=== PATIENT | female | born 1985 | race American Indian/Alaskan Native ===

== ENCOUNTER 2021-01-14 12:49 | Observation (INO) | payer OTHER ==
--- NOTE | 2021-01-14 13:19 | Event Note ---
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 Patient states that she has been suffering from abdominal pain x2 years. Patient reports she was recently diagnosed with Crohn's disease as well as fibroids. Patient admits to heavy menstrual cycle. She states that she is followed by [facility] and was is scheduled for Tuesday to have fibroids repaired. She has a medical art therapist Dr.Jalil Torres [phone]. Patient admits that she suffers from being tired all the time.. She is 4 para 4. Last menstrual period was 01/13/2021. This initial assessment/diagnostic orders/clinical plan/treatment(s) is/are subject to change based on patients health status, clinical progression and re- assessment by fellow clinical providers in the ED. Further treatment and workup at subsequent clinical providers discretion. Patient/guardian urged not to elope from the ED as their condition may be serious if not clinically assessed and managed. Initial orders include: CBC CMP PT PTT type and screen.
[2021-01-14 13:36] LABS: Mean Corpuscular HGB Conc 28 % (30-34); Platelet Count 299 K/mm3 (140-440); Red Blood Count 3.61 M/mm3 (3.65-5.03)
[2021-01-14 13:38] LABS: Hematocrit 21.5 % (30.3-42.9); Hemoglobin 5.9 gm/dl (10.1-14.3); Mean Corpuscular Volume 60 fl (79-97)
[2021-01-14 13:40] LABS: INR 0.98 (0.87-1.13); Partial Thromboplastin Time 29.2 Sec. (24.2-36.6)
[2021-01-14] MEDS ORDERED: fentaNYL 100 MCG/2 ML INJ IV ONE (13:46)
[2021-01-14] MEDS ORDERED: ONDANSETRON 4 MG/2 ML INJ IV ONE (13:46)
[2021-01-14] MEDS ORDERED: SODIUM CHLORIDE 0.9% 500 ML 500 ML IV ONE (13:46)
--- NOTE | 2021-01-14 13:54 | Emergency Department Report ---
HPI - HPI HPI: Spoke to Dr. Mason at approximately 5:05 PM pelvic exam discussed that was done previously by Dr. Flor. Patient will be admitted to [facility] and will receive transfusion of packed RBCs. <PEPE BAE - Last Filed: 01/14/21 17:08> - HPI HPI: Reassessment 1 The patient is a 35-year-old female present with chief complaint of symptomatic anemia. The patient has a history of menorrhagia and uterine fibroids and had blood drawn 01/12/2021 in preparation for fibroid surgery this week. Patient was called and told her hemoglobin was low at 5.4 and that she needs to come to the hospital for blood transfusion. Patient states she feels weak and she complains of pain in her lower abdomen consistent with her fibroid pain. The patient states her cycle started yesterday and she has gone through approximately 48 pads in 1 day <IMANI DIAS - Last Filed: 01/16/21 01:47> - General Chief Complaint: Recheck/Abnormal Lab/Rx Time Seen by Provider: 01/14/21 13:20 ED Past Medical Hx <PEPE BAE - Last Filed: 01/14/21 17:08> - Past Medical History Hx Hypertension: Yes - Surgical History Past Surgical History?: No - Family History Family history: no significant - Social History Smoking Status: Former Smoker (None x3 years) Substance Use Type: None (Denies illicit drug use) <IMANI DIAS - Last Filed: 01/16/21 01:47> - Medications Home Medications: Home Medications Medication Instructions Recorded Confirmed Last Taken Type No Known Home Medications [No 01/14/21 01/14/21 Unknown History Reported Home Medications] ED Review of Systems ROS: Stated complaint: ABNORMAL LABS Other details as noted in HPI <PEPE BAE - Last Filed: 01/14/21 17:08> ROS: Stated complaint: ABNORMAL LABS Other details as noted in HPI Constitutional: malaise Eyes: denies: eye pain ENT: denies: throat pain Respiratory: no symptoms reported Cardiovascular: denies: chest pain Endocrine: no symptoms reported Gastrointestinal: abdominal pain Genitourinary: abnormal menses Musculoskeletal: denies: back pain Neurological: denies: headache <IMANI DIAS - Last Filed: 01/16/21 01:47> Physical Exam - Physical Exam Vital Signs: Vital Signs 01/14/21 01/14/21 01/14/21 12:54 14:20 14:31 Temperature 98.7 F Pulse Rate 92 H 91 H Respiratory 18 14 9 L Rate Blood Pressure 175/116 166/106 Blood Pressure [Right] O2 Sat by Pulse 100 100 100 Oximetry 01/14/21 01/14/21 01/14/21 14:45 14:57 15:00 Temperature Pulse Rate 83 Respiratory 18 18 Rate Blood Pressure 166/106 Blood Pressure [Right] O2 Sat by Pulse 100 98 Oximetry 01/14/21 01/14/21 01/14/21 15:01 15:15 15:22 Temperature Pulse Rate 88 72 78 Respiratory 13 16 18 Rate Blood Pressure 156/101 156/101 Blood Pressure 168/99 [Right] O2 Sat by Pulse 100 100 98 Oximetry 01/14/21 01/14/21 01/14/21 15:31 15:45 16:01 Temperature Pulse Rate 83 69 74 Respiratory 16 12 12 Rate Blood Pressure 168/99 168/99 160/107 Blood Pressure [Right] O2 Sat by Pulse 100 100 100 Oximetry 01/14/21 01/14/21 01/14/21 16:15 16:31 16:45 Temperature Pulse Rate 77 75 82 Respiratory 14 11 L 12 Rate Blood Pressure 160/107 160/107 160/107 Blood Pressure [Right] O2 Sat by Pulse 100 100 100 Oximetry 01/14/21 17:01 Temperature Pulse Rate Respiratory Rate Blood Pressure 164/110 Blood Pressure [Right] O2 Sat by Pulse 100 Oximetry <PEPE BAE - Last Filed: 01/14/21 17:08> - Physical Exam Vital Signs: Vital Signs 01/14/21 12:54 Temperature 98.7 F Pulse Rate 92 H Respiratory 18 Rate Blood Pressure 175/116 O2 Sat by Pulse 100 Oximetry Physical Exam: GENERAL: The patient is well-developed well-nourished female lying on stretcher not appearing to be in acute distress. [] HEENT: Normocephalic. Atraumatic. Extraocular motions are intact. Patient has moist mucous membranes. NECK: Supple. Trachea midline CHEST/LUNGS: Clear to auscultation. There is no respiratory distress noted. HEART/CARDIOVASCULAR: Regular. There is no tachycardia. There is no gallop rub or murmur. ABDOMEN: Abdomen is soft, with tenderness to palpation in the right lower quadrant, suprapubic and left lower quadrant. Patient has normal bowel sounds. There is no abdominal distention. SKIN: There is no rash. There is no edema. There is no diaphoresis. NEURO: The patient is awake, alert, and oriented. The patient is cooperative. The patient has no focal neurologic deficits. The patient has normal speech and gait. GCS 15 MUSCULOSKELETAL: There is no evidence of acute injury. PELVIC: Unknown amount of dark red blood pouring from introitus Pelvic exam. During exam I estimate approximately 50 mls of dark red blood still remaining in the vault and this was soaked up and cleared by using approximately 12-15 oversized swabs. The bleeding did not refill briskly but there was a slow ooze. <IMANI DIAS K - Last Filed: 01/16/21 01:47> ED Course Vital Signs 01/14/21 01/14/21 01/14/21 12:54 14:20 14:31 Temperature 98.7 F Pulse Rate 92 H 91 H Respiratory 18 14 9 L Rate Blood Pressure 175/116 166/106 Blood Pressure [Right] O2 Sat by Pulse 100 100 100 Oximetry 01/14/21 01/14/21 01/14/21 14:45 14:57 15:00 Temperature Pulse Rate 83 Respiratory 18 18 Rate Blood Pressure 166/106 Blood Pressure [Right] O2 Sat by Pulse 100 98 Oximetry 01/14/21 01/14/21 01/14/21 15:01 15:15 15:22 Temperature Pulse Rate 88 72 78 Respiratory 13 16 18 Rate Blood Pressure 156/101 156/101 Blood Pressure 168/99 [Right] O2 Sat by Pulse 100 100 98 Oximetry 01/14/21 01/14/21 01/14/21 15:31 15:45 16:01 Temperature Pulse Rate 83 69 74 Respiratory 16 12 12 Rate Blood Pressure 168/99 168/99 160/107 Blood Pressure [Right] O2 Sat by Pulse 100 100 100 Oximetry 01/14/21 01/14/21 01/14/21 16:15 16:31 16:45 Temperature Pulse Rate 77 75 82 Respiratory 14 11 L 12 Rate Blood Pressure 160/107 160/107 160/107 Blood Pressure [Right] O2 Sat by Pulse 100 100 100 Oximetry 01/14/21 17:01 Temperature Pulse Rate Respiratory Rate Blood Pressure 164/110 Blood Pressure [Right] O2 Sat by Pulse 100 Oximetry <PEPE BAE - Last Filed: 01/14/21 17:08> Vital Signs 01/14/21 12:54 Temperature 98.7 F Pulse Rate 92 H Respiratory 18 Rate Blood Pressure 175/116 O2 Sat by Pulse 100 Oximetry - Consultations Consultation #1: 01/14/21 15:13 [facility] paged-Case discussed with Dr. Mason. May be transfused 1 unit PRBCs in ED and discharge depending on how heavily she is currently bleeding. W ill decide after pelvic exam. 01/14/21 16:02 Dr. Mason paged <IMANI DIAS - Last Filed: 01/16/21 01:47> ED Medical Decision Making - Lab Data Result diagrams: 01/14/21 13:13 01/14/21 13:13 <PEPE BAE - Last Filed: 01/14/21 17:08> - Lab Data Result diagrams: 01/15/21 15:15 01/14/21 13:13 Laboratory Tests 01/14/21 01/14/21 01/14/21 13:13 13:13 13:13 WBC 5.7 RBC 3.61 L Hgb 5.9 L* Hct 21.5 L MCV 60 L MCH 16 L MCHC 28 L RDW 22.0 H Plt Count 299 Add Manual Diff Complete Total Counted 100 Seg Neuts % (Manual) 76.0 H Lymphocytes % (Manual) 18.0 Monocytes % (Manual) 3.0 Eosinophils % (Manual) 2.0 Basophils % (Manual) 1.0 Nucleated RBC % Not Reportable Seg Neutrophils # Man 4.3 Band Neutrophils # 0.0 Lymphocytes # (Manual) 1.0 L Abs React Lymphs (Man) 0.0 Monocytes # (Manual) 0.2 Eosinophils # (Manual) 0.1 Basophils # (Manual) 0.1 Metamyelocytes # 0.0 Myelocytes # 0.0 Promyelocytes # 0.0 Blast Cells # 0.0 WBC Morphology Not Reportable Hypersegmented Neuts Not Reportable Hyposegmented Neuts Not Reportable Hypogranular Neuts Not Reportable Smudge Cells Not Reportable Toxic Granulation Not Reportable Toxic Vacuolation Not Reportable Dohle Bodies Not Reportable Pelger-Huet Anomaly Not Reportable Oliverio Rods Not Reportable Platelet Estimate Consistent w auto Clumped Platelets Not Reportable Plt Clumps, EDTA Not Reportable Large Platelets Not Reportable Giant Platelets Not Reportable Platelet Satelliting Not Reportable Plt Morphology Comment Not Reportable RBC Morphology Not Reportable Dimorphic RBCs Not Reportable Polychromasia Not Reportable Hypochromasia 3+ Poikilocytosis Not Reportable Anisocytosis 2+ Microcytosis 2+ Macrocytosis Not Reportable Spherocytes Not Reportable Pappenheimer Bodies Not Reportable Sickle Cells Not Reportable Target Cells Not Reportable Tear Drop Cells Not Reportable Ovalocytes Not Reportable Helmet Cells Not Reportable [place] Bodies Not Reportable [place] Rings Not Reportable [place] Cells Not Reportable Bite Cells Not Reportable Crenated Cell Not Reportable Elliptocytes Not Reportable Acanthocytes (Spur) Not Reportable Rouleaux Not Reportable Hemoglobin C Crystals Not Reportable Schistocytes Not Reportable Malaria parasites Not Reportable Amish Bodies Not Reportable Hem Pathologist Commnt No PT 14.1 INR 0.98 APTT 29.2 Sodium 137 Potassium 4.1 Chloride 102.9 Carbon Dioxide 20 L Anion Gap 18 BUN 9 Creatinine 0.6 Estimated GFR > 60 BUN/Creatinine Ratio 15 Glucose 86 Calcium 9.1 Total Bilirubin 0.20 AST 12 ALT 6 L Alkaline Phosphatase 46 Total Protein 7.4 Albumin 4.2 Albumin/Globulin Ratio 1.3 HCG, Qual Blood Type Antibody Screen 01/14/21 01/14/21 13:13 14:01 WBC RBC Hgb Hct MCV MCH MCHC RDW Plt Count Add Manual Diff Total Counted Seg Neuts % (Manual) Lymphocytes % (Manual) Monocytes % (Manual) Eosinophils % (Manual) Basophils % (Manual) Nucleated RBC % Seg Neutrophils # Man Band Neutrophils # Lymphocytes # (Manual) Abs React Lymphs (Man) Monocytes # (Manual) Eosinophils # (Manual) Basophils # (Manual) Metamyelocytes # Myelocytes # Promyelocytes # Blast Cells # WBC Morphology Hypersegmented Neuts Hyposegmented Neuts Hypogranular Neuts Smudge Cells Toxic Granulation Toxic Vacuolation Dohle Bodies Pelger-Huet Anomaly Oliverio Rods Platelet Estimate Clumped Platelets Plt Clumps, EDTA Large Platelets Giant Platelets Platelet Satelliting Plt Morphology Comment RBC Morphology Dimorphic RBCs Polychromasia Hypochromasia Poikilocytosis Anisocytosis Microcytosis Macrocytosis Spherocytes Pappenheimer Bodies Sickle Cells Target Cells Tear Drop Cells Ovalocytes Helmet Cells [place] Bodies [place] Rings [place] Cells Bite Cells Crenated Cell Elliptocytes Acanthocytes (Spur) Rouleaux Hemoglobin C Crystals Schistocytes Malaria parasites Amish Bodies Hem Pathologist Commnt PT INR APTT Sodium Potassium Chloride Carbon Dioxide Anion Gap BUN Creatinine Estimated GFR BUN/Creatinine Ratio Glucose Calcium Total Bilirubin AST ALT Alkaline Phosphatase Total Protein Albumin Albumin/Globulin Ratio HCG, Qual Negative Blood Type O POSITIVE Antibody Screen Negative - Differential Diagnosis Menorrhagia, symptomatic anemia <IMANI DIAS - Last Filed: 01/16/21 01:47> Critical care attestation.: If time is entered above; I have spent that time in minutes in the direct care of this critically ill patient, excluding procedure time. <PEPE BAE - Last Filed: 01/14/21 17:08> Critical care attestation.: If time is entered above; I have spent that time in minutes in the direct care of this critically ill patient, excluding procedure time. <IMANI DIAS - Last Filed: 01/16/21 01:47> ED Disposition <PEPE BAE - Last Filed: 01/14/21 17:08> Is pt being admited?: Yes Does the pt Need Aspirin: No <IMANI DIAS - Last Filed: 01/16/21 01:47> Clinical Impression: Menorrhagia, Symptomatic anemia, Uterine fibroid Disposition: ADMITTED INPATIENT Condition: Stable
[2021-01-14 13:55] LABS: Alanine Aminotransferase 6 units/L (7-56); Albumin 4.2 g/dL (3.9-5); Blood Urea Nitrogen 9 mg/dL (7-17); Calcium 9.1 mg/dL (8.4-10.2); Hemolysis Index 4
[2021-01-14 13:58] LABS: BUN/Creatinine Ratio 15
[2021-01-14 14:11] LABS: Anisocytosis 2+; Hypochromasia 3+; Platelet Estimate Consistent w Auto; Total Cells Counted 100
[2021-01-14] MEDS ORDERED: ONDANSETRON 4 MG/2 ML INJ IV PRN (17:28)
[2021-01-14] MEDS ORDERED: LACTATED RINGERS 1,000 ML IV SCH (17:30)
[2021-01-14] MEDS ORDERED: SODIUM CHLORIDE 0.9% 500 ML 500 ML IV SCH (17:35)
[2021-01-14] MEDS: MORPHINE 2 MG/1 ML INJ IV PRN ×2 (18:49→23:54)
[2021-01-14] MEDS: LISINOPRIL 20 MG TAB PO SCH (19:55)
[2021-01-14] MEDS ORDERED: SODIUM CHLORIDE P/F VIAL 10 ML 0 ML ONE (20:45)
[2021-01-14] MEDS ORDERED: WATER FOR INJ Sterile (PF) 10 ML ONE (20:50)
[2021-01-14] MEDS: ESTROGENS, CONJUGATED 25 MG INJ IV SCH (20:54)
[2021-01-14] MEDS: ACETAMINOPHEN 325 MG TAB PO PRN (20:58)
[2021-01-15] MEDS: ACETAMINOPHEN 325 MG TAB PO PRN ×3 (03:39→11:18)
[2021-01-15] MEDS: ESTROGENS, CONJUGATED 25 MG INJ IV SCH ×3 (03:41→15:18)
[2021-01-15] MEDS: MORPHINE 2 MG/1 ML INJ IV PRN ×2 (05:37→13:00)
[2021-01-15 07:27] LABS: Hematocrit 25.8 % (30.3-42.9); Hemoglobin 7.5 gm/dl (10.1-14.3)
--- NOTE | 2021-01-15 08:27 | History and Physical Report ---
History of Present Illness Date of examination: 01/15/21 Date of admission: 01/14/21 17:31 Chief complaint: sent by Dr Orr for blood transfusion History of present illness: Pt is a 35 year old -[place] female who presented to the emergency room with complaint of vaginal bleeding. Earlier this week, the patient was undergoing preoperative assessment for uterine fibroid embolization with Dr. Orr for treatment of multiple uterine fibroids. Her hemoglobin was noted to be 5.4 and she was instructed to proceed to the emergency department for blood transfusion. She was unable to come to the emergency department the night she was informed of this laboratory value, so she presented on 01/14/2021. She did begin her menses on schedule on January 13, 2021 which is traditionally quite heavy. She also reports fatigue and weakness. This patient has also experienced a 30 pound unintentional weight loss over the past few months. Per Dr. Orr her MRI shows evidence of Crohn's disease. She has been referred to GI who recommend that her fibroid treatment precede further investigation of her Crohn's disease. Overnight, this patient did receive 2 units of packed red blood cells and 2 doses of IV Premarin. She reports minimal reduction in her vaginal bleeding. 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: fibroids Family/Genetic History: hypertension Social history: no significant social history - Obstetrical History : 4 Para: 4 Hx # Term Pregnancies: 4 Number of Pregnancies: 0 Spontaneous Abortions: 0 Induced : 0 Number of Living Children: 4 Medications and Allergies Allergies Allergy/AdvReac Type Severity Reaction Status Date / Time ibuprofen AdvReac Unknown Verified 01/14/21 13:40 Home Medications Medication Instructions Recorded Confirmed Last Taken Type No Known Home Medications [No 01/14/21 01/14/21 Unknown History Reported Home Medications] Active Meds: Active Medications Acetaminophen (Acetaminophen 325 Mg Tab) 650 mg PO Q4H PRN PRN Reason: Pain MILD(1-3)/Fever >100.5/ROBERTSON Last Admin: 01/15/21 07:12 Dose: 650 mg Documented by: Lactated Ringer's (Lactated Ringers) 1,000 mls @ 125 mls/hr IV DIRECT JATIN Last Admin: 01/14/21 19:59 Dose: 125 mls/hr Documented by: Sodium Chloride (Nacl 0.9% 500 Ml) 500 mls @ 0 mls/hr IV ONCE JATIN Last Admin: 01/14/21 21:03 Dose: 50 mls/hr Documented by: Lisinopril (Lisinopril 20 Mg Tab) 20 mg PO BID JATIN Last Admin: 01/14/21 19:55 Dose: 20 mg Documented by: Morphine Sulfate (Morphine 2 Mg/1 Ml Inj) 2 mg IV Q4H PRN PRN Reason: Pain, Moderate (4-6) Last Admin: 01/15/21 05:37 Dose: 2 mg Documented by: Ondansetron HCl (Ondansetron 4 Mg/2 Ml Inj) 4 mg IV Q8H PRN PRN Reason: N/V unrelieved by Reglan Review of Systems All systems: negative Constitutional: weight loss (per HPI ) - Vital Signs Vital signs: Vital Signs Temp Pulse Resp BP Pulse Ox 98.7 F 92 H 18 175/116 100 01/14/21 12:54 01/14/21 12:54 01/14/21 12:54 01/14/21 12:54 01/14/21 12:54 Temp Pulse Resp BP Pulse Ox 98.5 F 80 16 123/82 100 01/15/21 07:22 01/15/21 07:22 01/15/21 07:22 01/15/21 07:22 01/15/21 07:22 Results Result Diagrams: 01/15/21 05:33 01/14/21 13:13 Abnormal lab results 01/14/21 01/14/21 01/14/21 Range/Units 13:13 13:13 13:13 RBC 3.61 L (3.65-5.03) M/mm3 Hgb 5.9 L* (10.1-14.3) gm/dl Hct 21.5 L (30.3-42.9) % MCV 60 L (79-97) fl MCH 16 L (28-32) pg MCHC 28 L (30-34) % RDW 22.0 H (13.2-15.2) % Seg Neuts % (Manual) 76.0 H (40.0-70.0) % Lymphocytes # (Manual) 1.0 L (1.2-5.4) K/mm3 Carbon Dioxide 20 L (22-30) mmol/L ALT 6 L (7-56) units/L Crossmatch See Detail 01/15/21 Range/Units 05:33 RBC (3.65-5.03) M/mm3 Hgb 7.5 L (10.1-14.3) gm/dl Hct 25.8 L (30.3-42.9) % MCV (79-97) fl MCH (28-32) pg MCHC (30-34) % RDW (13.2-15.2) % Seg Neuts % (Manual) (40.0-70.0) % Lymphocytes # (Manual) (1.2-5.4) K/mm3 Carbon Dioxide (22-30) mmol/L ALT (7-56) units/L Crossmatch All other labs normal. Assessment and Plan A: Dysfunctional Uterine Bleeding Symptomatic Anemia Fibroids Suspected Crohn's Disease P: Contact made this morning with the patient's interventional radiologist Dr. Orr with recommendation for transfusion of 1 additional unit of packed red blood cells prior to her fibroid embolization procedure. This patient will receive 2 additional doses of IV Premarin. And her hemoglobin and hematocrit will be rechecked after her transfusion. Dr. Orr plans to expedite the scheduling process for this patient's procedure. Closely monitor patient's clinical status.
[2021-01-15] MEDS ORDERED: SODIUM CHLORIDE 0.9% 500 ML 500 ML IV NR (08:34)
[2021-01-15] MEDS: LISINOPRIL 20 MG TAB PO SCH (09:47)
[2021-01-15 15:30] LABS: Hematocrit 29.5 % (30.3-42.9); Hemoglobin 9.2 gm/dl (10.1-14.3)
[2021-01-15] MEDS ORDERED: LISINOPRIL 20 MG TAB PO ONE (18:24)
[2021-01-15 18:26] VITALS: BP 176/103
--- NOTE | 2021-01-15 23:48 | Short Stay Summary ---
Short Stay Documentation Date of service: 01/15/21 - History H&P: dictated Social history: no significant social history - Allergies and Medications Current Medications: Allergies ibuprofen Adverse Reaction (Verified 01/14/21 13:40) Unknown Home Medications Medication Instructions Recorded Confirmed Last Taken Type No Known Home Medications [No 01/14/21 01/14/21 Unknown History Reported Home Medications] - Hospital course Hospital course: This patient was admitted for symptomatic anemia with a hemoglobin of 5. Her anemia was noted on preoperative assessment for uterine fibroid embolization. Her interventional radiologist Dr. Orr was contacted with instruction to transfuse 3 units of packed red blood cells in preparation for her procedure. The patient was also on her menses and bleeding heavily so she received 4 doses of IV Premarin to decrease her bleeding. She experienced an appropriate rise in hemoglobin and hematocrit after transfusion. She became hypertensive near the time of discharge, but was agitated about how long the discharge process was taking. The patient will check her blood pressure at home and will continue to take her lisinopril 20 mg twice daily. She can follow-up in the office with Dr. Mason as needed, and follow-up with her primary care physician within 1 week. - Disposition Condition at discharge: Stable Disposition: 01 HOME / SELF CARE / HOMELESS - Discharge Diagnoses (1) Menorrhagia Status: Acute Qualifiers: Menorrhagia type: with regular cycle Qualified Code(s): N92.0 - Excessive and frequent menstruation with regular cycle (2) Symptomatic anemia Status: Acute (3) Uterine fibroid Status: Acute Qualifiers: Uterine leiomyoma location: unspecified location Qualified Code(s): D25.9 - Leiomyoma of uterus, unspecified Short Stay Discharge Plan Activity: no restrictions Weight Bearing Status: Full Weight Bearing Diet: regular Additional Instructions: Call your doctor immediately for: * Fever > 100.5 * Heavy vaginal bleeding ( >1 pad per hour) * Severe persistent headache * Shortness of breath * Reddened, hot, painful area to leg or breast Follow up with: PRIMARY CAREMD [Primary Care Provider] - 3-5 Days Forms: [facility] Discharge Summary
== END 2021-01-15 18:35 | disposition home or self-care (01) ==
LOC: ED 12:49 → OB 17:31
PROVIDERS: ADMIT Obstetrics & Gynecology; ATTEND Obstetrics & Gynecology
DX: N92.0 Excessive and frequent menstruation with regular cycle (principal); Z20.822 Contact with and (suspected) exposure to COVID-19; D64.9 Anemia, unspecified; I10 Essential (primary) hypertension; N93.8 Other specified abnormal uterine and vaginal bleeding; D25.9 Leiomyoma of uterus, unspecified; K50.90 Crohn's disease, unspecified, without complications; K31.84 Gastroparesis; Z87.891 Personal history of nicotine dependence
CPT/HCPCS: 36415; 36430; 80053; 84703; 85014; 85018; 85025; 85610; 85730; 86850; 86900; 86901; 86920; 96374; 96375; 96376; 99284; G0378; J1410; J2270; J2405; J3010; J7040; J7120; P9016; U0003; 85007